=== PATIENT | male | born 1965 | race Caucasian/White ===

== ENCOUNTER 2018-05-11 17:03 | Observation (INO) | payer OTHER ==
[~2018-05-11] VITALS: Ht 180.3 cm; Wt 108.0 kg
[2018-05-11 19:57] LABS: SOURCE URINE
[2018-05-11 20:02] LABS: APPEARANCE CLEAR ((CLEAR)); BILIRUBIN SMALL; BLOOD NEGATIVE; COLOR AMBER ((YELLOW)); GLUCOSE (STRIP) NEGATIVE; KETONES NEGATIVE; LEUKOCYTES NEGATIVE; NITRITE NEGATIVE; PROTEIN (STRIP) 30; SPECIFIC GRAVITY 1.032 (1.000-1.030); UCUL ADDED? NO
[2018-05-11 20:02] LABS: HEMATOCRIT 40.9 % (38.0-50.0); MCH 35.1 PG (29.0-34.0); MCHC 34.2 G/DL (30.0-36.0); MCV 102.5 FL (86-99); PLATELET COUNT 156 K/uL (156-360); RBC DIS.WIDTH-CV 13.2 % (11.8-14.6); RBC DIS.WIDTH-SD 49.4 % (39-53); RED BLOOD COUNT 3.99 M/uL (4.00-5.50); WHITE BLOOD COUNT 4.3 K/uL (4.1-10.2)
[2018-05-11 20:05] LABS: ALBUMIN 3.5 g/dL (3.2-4.8); CHLORIDE 104 mEq/L (99-109); POTASSIUM 4.3 mEq/L (3.7-5.4); SODIUM 141 mEq/L (136-147)
[2018-05-11 20:08] LABS: GLUCOSE 126 mg/dL (70-99); TOTAL PROTEIN 7.7 g/dL (6.4-8.3)
[2018-05-11 20:10] LABS: TOTAL BILIRUBIN 0.5 mg/dL (0.0-1.0)
[2018-05-11 20:11] LABS: ALKALINE PHOSPHATASE 49 IU/L (3-129); CREATININE 0.9 mg/dL (0.6-1.3); GFR ESTIMATE (CALCULATED) > 59 mL/min/ (58.99-99999)
[2018-05-11 20:12] LABS: UREA NITROGEN (BUN) 13 mg/dL (9-23)
[2018-05-11 20:13] LABS: AST (GOT) 61 IU/L (2-34)
[2018-05-11 20:14] LABS: ALT (GPT) 70 IU/L (3-49)
[2018-05-12 01:11] LABS: SERUM ETHYL ALCOHOL < 10 mg/dL
[2018-05-12 02:19] VITALS: BP 156/84
[2018-05-12 07:27] VITALS: BP 133/92
[2018-05-12 10:26] LABS: TREPONEMA ANTIBODY NEGATIVE (NEGATIVE)
[2018-05-12 11:09] VITALS: BP 122/95
[2018-05-12 16:36] VITALS: BP 120/72
[2018-05-12 19:24] LABS: BENZODIAZEPINES, URINE SCREEN Negative (200 ng/mL)
[2018-05-12 20:14] VITALS: BP 139/81
[2018-05-13 00:35] VITALS: BP 136/79
[2018-05-13 04:21] VITALS: BP 128/72
[2018-05-13 09:00] VITALS: BP 142/91
[2018-05-13 12:07] LABS: ALBUMIN 3.3 G/DL (3.2-4.8); ALKALINE PHOSPHATASE 45 IU/L (3-129); ALT (GPT) 55 IU/L (3-49); AST (GOT) 51 IU/L (2-34); DIRECT BILIRUBIN 0.2 mg/dL (0.0-0.3); TOTAL BILIRUBIN 0.5 MG/DL (0.0-1.0); TOTAL PROTEIN 6.7 G/DL (6.4-8.3)
[2018-05-13 12:26] VITALS: BP 144/99
[2018-05-13 12:35] LABS: FOLIC ACID (FOLATE) > 22.0 NG/ML (5.0-22.0)
[2018-05-13 13:28] LABS: C-REACTIVE PROTEIN 1.4 MG/L (0-10)
[2018-05-13] MEDS ORDERED: FLUCONAZOLE200 MG PO (14:05)
[2018-05-13] MEDS ORDERED: Thiamine,Vitamin B1 PO (14:05)
[2018-05-13] MEDS ORDERED: NICOTINE PATCH1 EAC2 TD (14:05)
[2018-05-13] MEDS ORDERED: KEFLEX500 MG PO (14:05)
[2018-05-13] MEDS ORDERED: FOLIC ACID1 MG PO (14:05)
[2018-05-14 12:51] LABS: CHLAMYDIA TRACHOMATIS NEGATIVE; NEISSERIA GONORRHOEAE NEGATIVE
== END 2018-05-13 16:31 | disposition home or self-care (01) ==
LOC: EME 17:03 → EXP 17:03 → 4SOUTH 05-12 00:39 → EDOF 05-12 00:39 → ENRESERV 05-12 00:40 → CANRESERV 05-12 00:40 → EDOF 05-12 00:54 → ENRESERV 05-12 01:10 → 4SOUTH 05-12 02:15
PROVIDERS: Hospitalist; Physician Assistant
DX: L03.314 Cellulitis of groin (principal); B35.6 Tinea cruris; F17.210 Nicotine dependence, cigarettes, uncomplicated; Z59.0 Homelessness; F32.9 Major depressive disorder, single episode, unspecified; Z91.5 Personal history of self-harm; Z87.820 Personal history of traumatic brain injury; F14.10 Cocaine abuse, uncomplicated; F10.20 Alcohol dependence, uncomplicated; E66.3 Overweight; Z68.32 Body mass index [BMI] 32.0-32.9, adult; Z82.49 Family history of ischemic heart disease and other diseases of the circulatory system; Z80.8 Family history of malignant neoplasm of other organs or systems
CPT/HCPCS: 76870; 80053; 80076; 80306 90; 81003; 82607; 82746; 83605; 83690; 83735; 85027; 86140; 86780; 87040; 87491; 87591; 87641; 99281; 99285; G0378; G0480; J0690; J1650; J1885; J2543; J3370; J7030; J7050